=== PATIENT | female | born 1950 | race Caucasian/White ===

== ENCOUNTER 2017-04-05 15:01 | Inpatient (IN) | payer MEDICARE ==
[~2017-04-05] VITALS: Ht 170.1 cm; Wt 84.2 kg
--- NOTE | ~2017-04-05 | PR ---
[place], [place] PROGRESS NOTE NAME: MADONNA POSADAS UNIT #: [id number] ROOM: 310 DOCTOR: SHADI PEREZ MD BIRTHDATE: [birth year] DOS: 04/08/2017 CHIEF COMPLAINT: "Yes, I slept well, is it time for breakfast?" SUMMARY OF THE VISIT: The patient was interviewed in the dining area as she was sitting in her Carol chair waiting for breakfast to be delivered. In kurtz contrast to yesterday, she actually engaged in meaningful conversation. While lacking spontaneity, she was able to answer my questions more appropriately. Her responses for the most part were shorter and simple, but nonetheless they were to the point. There were no bizarre statements. There was no gibberish or word salad and from a motor standpoint, she seemed much calmer as she was sitting there. Nurses report that she slept well last night and her appetite seems to be improving. She seems to be outwardly tolerating the current medication regimen well. MENTAL STATUS: She is alert and oriented to person, perhaps place, but not time. Mood does seem a little bit more euthymic today and affect is more appropriate. As mentioned previously, her speech is more normal, although her responses are short and simple. There were no overt auditory or visual hallucinations, linnea or hypomania. Short term memory remains poor. PLAN: I will go ahead and increase Exelon patch from 4.6 to 9.5 mg a day, consider augmenting with Namenda, engage in individual and rod milieu activity, returning to the least restrictive environment when psychiatrically stable. SHADI PEREZ MD CM:PNTRANS [phone] SHADI PEREZ MD 04/08/17 0850 interface
--- NOTE | ~2017-04-05 | PR ---
[place], [place] PROGRESS NOTE NAME: MADONNA POSADAS UNIT #: [id number] ROOM: 310 DOCTOR: SHADI PEREZ MD BIRTHDATE: [birth year] DOS: 04/09/2017 CHIEF COMPLAINT: "I need water for the baby here." SUMMARY OF THE VISIT: The patient was interviewed in the dining area where she was sitting quietly. She continued to have some repetitive bizarre movements. The movements did not seem to be extrapyramidal symptoms or tardive dyskinesia, but rather purposeful on her part. She continues to be exceedingly confused and delusional and reported to me that she requires water for the baby that she was holding in her arms when in reality there was nothing at all in her arms. Nurses report episodic periods of increased lucidness, followed by periods of extreme confusion with gross psychosis. She is tolerating her current medication regimen well. MENTAL STATUS: She is alert and oriented to person. It is unclear if she realizes she is in the hospital and she is certainly not oriented to time. Mood remains labile. Affect inappropriate. She is grossly delusional. Memory continues to be exceedingly poor. PLAN: Her valproic acid level was slightly elevated at 101.9. I will lower the Depakote from 500 mg 3 times a day to 250 mg twice a day, at 500 mg at bedtime, attempting to bring the level into the range of 60-80. I will increase her Invega from 6 mg in the morning to 9 mg in the morning and add Namenda 5 mg a day to augment the effectiveness of the Exelon patch. We will continue to engage in individual and rod milieu activity with the plan to return back to [facility] or the least restrictive environment when psychiatrically stable. SHADI PEREZ MD CM:PNTRANS 8 0 SHADI PEREZ MD 04/09/17938 interface
--- NOTE | ~2017-04-05 | CON ---
[place], [place] REPORT OF CONSULTATION NAME: MADONNA POSADAS UNIT #: [id number] ROOM: 310 DOCTOR: OSWALDO RECIO ED.D (NOE) BIRTHDATE: [birth year] DOS: 04/12/2017 HISTORY OF PRESENT ILLNESS: The patient is a 66-year-old female referred by Dr. Marquez for competency evaluation. At the present time, she is here in the hospital under a court order from the light cleaner in [place], [place]. She states she is and has one son but has no contact with her son. She is presently a resident at [facility] in [place], [place]. Her medical history is pertinent for seizure disorder, schizoaffective disorder, hypochromic anemia, coronary artery disease and vitamin D deficiency. Her medications include Ventolin, Norvasc, aspirin, Lipitor, vitamin D, Seroquel, Exelon, Depakote, Namenda, lithium carbonate and Invega. I do not know this patient's history of any type of substance abuse issues. She was awake, alert and oriented to person only. She believes she was still in [facility] and believes it is August. She is clearly not competent to make informed healthcare decisions. She is quite delusional and was quite agitated and manic at [facility] prior to being sent down here under a court order. She clearly needs a guardian because she apparently does not have a healthcare power of disability attorney to make informed decisions for her. DIAGNOSIS: Schizoaffective disorder. RECOMMENDATIONS: In my opinion, this patient would benefit from having a guardianship established. Thank you very much for this consult. OSWALDO RECIO ED.D CM:CONSTR:REPORT OF CONSULTATION 1145 04/12/17 1209 interface SHADI MARQUEZ MD
--- NOTE | ~2017-04-05 | WRIGHTHP ---
[place], [place] PATIENT HISTORY AND PHYSICAL EXAM NAME: MADONNA POSADAS UNIT #: [id number] ROOM: 310 DOCTOR: SHADI PEREZ MD BIRTHDATE: [birth year] DOS: 04/07/2017 CHIEF COMPLAINT: "I am going to go ahead and do that over there." SUMMARY OF THE VISIT: This is a 66-year-old white female known to me from her admission over at [facility] as well as a psychiatric consult while on the medical floor at [facility]. The patient apparently has a lengthy history of schizoaffective disorder and had been declining while at [facility]. Her behavior has become problematic there. She has become grossly delusional, sexually inappropriate, refusing medications and refusing all aspects of care including refusing to eat. She has been actively hallucinating. Her behavior has been so problematic at [facility] that she is putting both herself and others at risk. She was sent to the Emergency Room at [facility] for medical clearance, but while there was found to be significantly hypokalemic and was subsequently admitted to the medical floor. While on the medical floor, her behavior continued to be problematic and she continued to exhibit extreme mood lability and verbal and physical aggressiveness to the staff. She is now admitted to the U for further stabilization to rule out organic factors, returning to [facility] when psychiatrically stable. PAST MEDICAL HISTORY: Remarkable for hypertension, anemia, hyperlipidemia, seizure disorder, vitamin A deficiency, vitamin D deficiency. MENTAL STATUS: The patient is alert and oriented to self only. She is very disorganized and disjointed. Her thoughts are fragmented and she responds inappropriately to most questions asked of her. She does have significant processing difficulty and short term memory is exceedingly poor. DIAGNOSES: Schizoaffective disorder and Alzheimer's dementia. PLAN: I have already started her on Invega and discontinued her Seroquel. I did start her on Depakote 250 mg twice daily and 500 mg at bedtime to augment the effectiveness of the Invega. Given the fact that she is tolerating this well and I see no sedation or somnolence, I will up the dose to 500 mg 3 times a day and plan to obtain a valproic acid level here in a day or two. I did start her also on Exelon patch 4.6 mg daily, which I will gradually titrate upwards with a target dose of 13.3 mg daily. I will also consider augmenting this with Namenda or Namenda XR to increase its effectiveness. We will engage in individual and rod milieu activity with the plan to return to [facility] when stable. [place], [place] PATIENT HISTORY AND PHYSICAL EXAM NAME: MADONNA POSADAS UNIT #: [id number] ROOM: 310 DOCTOR: SHADI PEREZ MD BIRTHDATE: [birth year] SHADI PEREZ MD CM:HISPHYS:PATIENT HISTORY AND PHYSICAL EXAMINATION 8 2 SHADI PEREZ MD 04/07/1721 interface
--- NOTE | ~2017-04-05 | DS ---
[place], [place] DISCHARGE SUMMARY NAME: MADONNA POSADAS UNIT #: [id number] ROOM: 310 DOCTOR: SHADI PEREZ MD BIRTHDATE: [birth year] DOS: 04/14/2017 CHIEF COMPLAINT: "I'm gonna go ahead and do that over there." HISTORY OF PRESENT ILLNESS: This is a 66-year-old white female known to me from her admission at [facility] as well as a psychiatric consult on the medical floor. The patient apparently has a lengthy history of schizoaffective disorder and has been declining while at [facility]. Her behavior has become problematic. She is grossly delusional, sexually inappropriate, refusing medications, refusing all aspects of care. She has been actively hallucinating. She has been both verbally and physically aggressive and combative and resistive to care. She has been putting herself and others at risk. She was sent to the Emergency Room at [place] for medical clearance, but while there was found to have significant hypokalemia and was subsequently admitted to the medical floor for stabilization. During the period of time that she was on the medical floor, she continued to be very labile with extreme verbal and physical aggressiveness and sexually inappropriate behavior. Once stabilized, she is now admitted to the U for further psychiatric stabilization. PAST MEDICAL HISTORY: Remarkable for hypertension, anemia, hyperlipidemia, seizure disorder, vitamin A deficiency, vitamin D deficiency. SUMMARY OF HOSPITAL COURSE: The patient was admitted to the unit where she had her Seroquel discontinued and she was put on Invega 6 mg a day, Depakote 250 mg twice daily and 500 mg at bedtime was utilized to augment the effectiveness of the Invega. Ultimately, the Invega was increased to 9 mg a day, Exelon patch 4.6 mg a day was started and it was increased to its maximum dose of 13.3 mg a day. Namenda was added to the mix to augment the effectiveness of the Exelon. Eventually, lithium was started because of her severe bipolar issues and severe linnea with the combination of the Depakote, the lithium and the Invega, she began to clear and her thoughts became more organized and speech became much more rational and goal directed. She was able to remember where she was living and be able to engage more appropriately in individual and group activities. She no longer was exhibiting sexually inappropriate behavior. There was no verbal or physical aggression. She tolerated the medication regimen well. She was ultimately stabilized on lithium carbonate 450 mg a day, Depakote 125 twice a day and 250 at night, Namenda 10 mg twice a day, Exelon patch 13.3 mg a day and Invega 9 mg a day. She returned to [facility] where I will follow her upon her return. MENTAL STATUS AT DISCHARGE: The patient was alert and oriented to person, place and very approximate to time. Mood was euthymic. Affect is appropriate. There was no linnea or hypomania. There were no overt auditory or visual hallucinations. No delusions, no paranoia. Short term memory had gaps, otherwise she was intact. FINAL DIAGNOSES: Schizoaffective disorder and Alzheimer's dementia. PLAN: All of her prescriptions have been printed and will be sent with her as she returns back to [facility]. I will follow her upon her return to [place], [place] DISCHARGE SUMMARY NAME: MADONNA POSADAS UNIT #: [id number] ROOM: 310 DOCTOR: SHADI PEREZ MD BIRTHDATE: [birth year] [facility]. SHADI PEREZ MD CM:DISCHARG SHADI PEREZ MD 04/14/17 0848 interface
--- NOTE | ~2017-04-05 | PR ---
[place], [place] PROGRESS NOTE NAME: MADONNA POSADAS UNIT #: [id number] ROOM: 310 DOCTOR: SHADI PEREZ MD BIRTHDATE: [birth year] DOS: 04/12/2017 CHIEF COMPLAINT: "Oh, I am feeling better, thank you for asking." SUMMARY OF THE VISIT: The patient was interviewed as she was resting quietly in bed. She smiled as I approached. She reports she is feeling much better. She is so much more goal directed in her thinking and is able to answer questions more appropriately. There is much less bizarre behavior. No sexual inappropriate behavior. She did report that she is even feeling better in regards to her breathing that seemed to be somewhat moist yesterday and this does seem to have cleared. MENTAL STATUS: She is alert and oriented to person, place, not necessarily to time, but very approximate. Mood does seem to be trending towards euthymia. Affect is more appropriate. There is no linnea, hypomania, psychosis, auditory or visual hallucinations. No suicidality, homicidality or self-injurious thoughts. Memory has some gaps, but it is also more intact than upon admission. PLAN: I will maximize out the Namenda to 10 mg b.i.d. I will recheck a valproic acid level at 6:00 a.m. on 04/13/2017 to ensure that it is therapeutic and not too low or high, engage in individual and rod milieu activity, returning to the least restrictive environment when psychiatrically stable. SHADI PEREZ MD CM:PNTRANS 1 1 SHADI PEREZ MD 04/12/17910 interface
--- NOTE | ~2017-04-05 | PR ---
[place], [place] PROGRESS NOTE NAME: MADONNA POSADAS UNIT #: [id number] ROOM: 310 DOCTOR: SHADI PEREZ MD BIRTHDATE: [birth year] DOS: 04/13/2017 CHIEF COMPLAINT: "Can I go back to my room now?" SUMMARY OF THE VISIT: The patient was interviewed in the dining area. She engaged readily in conversation, reporting that she is feeling better. She is sleeping well, eating well. Her thoughts are much more clear and organized. She is able to engage more readily in conversation. She very clearly remembers being at [facility] and states that she has only been there short time, but was not able to give me an exact date. The patient does seem to be outwardly tolerating the current medication regimen well. I see no tardive dyskinesia, extrapyramidal symptoms, sedation or somnolence. MENTAL STATUS: She is alert and oriented. Mood does seem to be strongly trending towards euthymia. Affect is much more appropriate. There is no linnea or hypomania. There are no overt auditory or visual hallucinations. No delusions, no paranoia. Short term memory has some gaps, otherwise she is intact. PLAN: I will maintain her current psychotropic regimen as it is. Her valproic acid level has come back down into therapeutic at 84. She is tolerating the lithium and the Depakote well, as well as the Invega. We will continue to engage her in individual and rod milieu activity. The ultimate plan is to return back to [facility] when psychiatrically stable. SHADI PEREZ MD CM:PNTRANS [id number] SHADI PEREZ MD 04/13/17 0847 interface
--- NOTE | ~2017-04-05 | PR ---
[place], [place] PROGRESS NOTE NAME: MADONNA POSADAS UNIT #: [id number] ROOM: 310 DOCTOR: SHADI PEREZ MD BIRTHDATE: [birth year] DOS: 04/10/2017 CHIEF COMPLAINT: "I guess I am okay." SUMMARY OF THE VISIT: The patient was interviewed as she was sitting in the dining area, watching television. As I approached, she was moving her upper extremities almost in a ritualistic way. It did not appear as a tremor. Later, I did observe her sitting in the quiet room and she had absolutely no movement whatsoever, so it does appear that this was a volitional thing. As I approached her the first time to engage her, she was more talkative and was able to answer my questions more appropriately, although many times she gave a "I don't know or I am not certain" response. She certainly seems more goal directed in her thinking. There were no bizarre comments voiced. Nurses, however, report she still exhibits some very peculiar actions and is somewhat sexual at times. MENTAL STATUS: She is alert and oriented to self. It is unclear if she knows place, certainly not time. Mood does seem to be gradually trending towards euthymia. Affect is more appropriate. There is no linnea or hypomania. It is unclear if there is still some psychosis present. PLAN: At this point, I will continue to increase the Exelon patch and the Namenda. I will bring the Exelon patch from 9.5 to its maximum dose of 13.3 daily, increase Namenda from 5 mg a day to 5 mg twice a day. I will check a valproic acid level and the lithium level in the morning tomorrow. Engage in individual and rod milieu activity with the plan to return to the least restrictive environment when stable. SHADI PEREZ MD CM:PNTRANS 4 SHADI PEREZ MD 04/10/1724 interface
--- NOTE | ~2017-04-05 | PR ---
[place], [place] PROGRESS NOTE NAME: MADONNA POSADAS UNIT #: [id number] ROOM: 310 DOCTOR: SHADI PEREZ MD BIRTHDATE: [birth year] DOS: 04/11/2017 CHIEF COMPLAINT: "Good morning." SUMMARY OF THE VISIT: The patient was interviewed after she was done showering. She did seem to have a very rattly moist cough. She is more goal directed in her speech, less bizarre behaviors noted, less sexually inappropriate behavior. She seems to be tolerating the current medication regimen well. MENTAL STATUS: She is alert and oriented. Mood does seem to be trending towards euthymia. Affect is more appropriate. There is no linnea or hypomania. There are no auditory or visual hallucinations. PLAN: I will put the valproic acid dosing on hold for 24 hours given her high valproic acid level, although this might be artificially high as she may have received a dose of Depakote prior to the blood test, making it erroneous. Her lithium level is 0.36. I will change from Lithobid 300 mg daily to Eskalith-CR 450 a day to try to bring this level up to about 0.5 or 0.6. I will increase Namenda to 10 mg in the morning and 5 mg at bedtime and order chest x-rays with two views and a CBC with diff now to rule out pneumonia or other underlying pulmonary issues, engage in individual and rod milieu activity with the plan to return to the least restrictive environment when stable. SHADI PEREZ MD CM:PNTRANS [id number] SHADI PEREZ MD 04/15/17 1318 interface
[2017-04-05] MEDS ORDERED: SEROQUEL200 MG PO (15:13)
[2017-04-05] MEDS ORDERED: NORVASC5 MG PO (15:16)
[2017-04-05] MEDS ORDERED: LIPITOR20 MG PO (15:17)
[2017-04-05] MEDS ORDERED: VENTOLIN 02.5 MG/3 M INH (15:18)
[2017-04-05] MEDS ORDERED: EXELON1 EACH T (15:18)
[2017-04-05] MEDS ORDERED: KEPPRA500 MG PO (15:19)
[2017-04-05] MEDS ORDERED: VITAMIN D50000 UNIT PO (15:20)
[2017-04-05] MEDS ORDERED: ASPIRIN CHEWABL81 MG PO (15:21)
[2017-04-05] MEDS ORDERED: MACROBID100 M1 PO (15:23)
[2017-04-06 21:00] VITALS: BP 147/74
[2017-04-06 21:32] VITALS: BP 147/74
[2017-04-07 07:39] VITALS: BP 148/76
[2017-04-07 08:11] LABS: CHLORIDE 106 mmol/L (98-107); POTASSIUM 3.2 mmol/L (3.5-5.1); SODIUM 143 mmol/L (136-145)
[2017-04-07 08:27] LABS: BUN 9 mg/dl (7-24); CHOLESTEROL 130 mg/dL (<200); CREATININE 0.89 mg/dL (0.55-1.02); HDL CHOLESTEROL 48 mg/dl (40-60); LDL CHOLESTEROL 58 mg/dL (9-159); TRIGLYCERIDES 119 mg/dl (<150); VLDL CHOLESTEROL 24 mg/dL (6-40)
[2017-04-07 08:41] LABS: VITAMIN D, 25-HYDROXY 21.9 ng/mL (30-100)
[2017-04-07 20:00] VITALS: BP 126/67
[2017-04-08 07:09] LABS: BUN 6 mg/dl (7-24); CHLORIDE 108 mmol/L (98-107); CREATININE 0.82 mg/dL (0.55-1.02); POTASSIUM 3.3 mmol/L (3.5-5.1); SODIUM 145 mmol/L (136-145)
[2017-04-08 07:25] VITALS: BP 120/62
[2017-04-08 19:45] VITALS: BP 137/56
[2017-04-09 07:37] VITALS: BP 133/65
[2017-04-09 07:55] LABS: BUN 4 mg/dl (7-24); CHLORIDE 112 mmol/L (98-107); CREATININE 0.77 mg/dL (0.55-1.02); POTASSIUM 3.6 mmol/L (3.5-5.1); SODIUM 147 mmol/L (136-145)
[2017-04-09 20:00] VITALS: BP 123/62
[2017-04-10 07:52] VITALS: BP 141/64
[2017-04-10 19:47] VITALS: BP 132/60
[2017-04-11 07:46] VITALS: BP 140/55
[2017-04-11 10:11] LABS: BASO % 0.5 % (0.0-1.0); EOS # 0.1 10*3/uL (0.0-0.4); EOS % 3.4 % (1.0-4.0); HEMATOCRIT 37.2 % (37.0-47.0); LYMPH # 0.7 10*3/uL (1.3-4.4); LYMPH % 17.1 % (27.0-41.0); MEAN CELL VOLUME 85.7 fl (81.0-99.0); MEAN CORPUSCULAR HGB 25.3 pg (27.0-31.0); MEAN CORPUSCULAR HGB CONC 29.6 g/dl (33.0-37.0); MEAN PLATELET VOLUME 11.2 fl (9.6-12.3); MONO # 0.4 10*3/uL (0.1-1.0); MONO % 8.9 % (3.0-9.0); NEUT # 2.9 10*3/uL (2.3-7.9); NEUT % 69.9 % (47.0-73.0); PLATELET COUNT AUTOMATED 177 10*3/uL (130-400); RED BLOOD COUNT 4.34 10*6/uL (4.10-5.10); WHITE BLOOD COUNT 4.1 10*3/uL (4.8-10.8)
[2017-04-11 20:00] VITALS: BP 120/56
[2017-04-12 07:37] VITALS: BP 136/70
[2017-04-12 19:49] VITALS: BP 126/56
[2017-04-13 08:00] VITALS: BP 140/63
[2017-04-13 19:37] VITALS: BP 124/78
[2017-04-14 07:52] VITALS: BP 115/69
[2017-04-14] MEDS ORDERED: DIVALPROEX SOD125 MG PO (08:28)
[2017-04-14] MEDS ORDERED: Vitamin D PO (08:28)
[2017-04-14] MEDS ORDERED: DIVALPROEX SOD250 MG PO (08:28)
[2017-04-14] MEDS ORDERED: EXELON13.3 MG/21 T (08:28)
[2017-04-14] MEDS ORDERED: MEMANTINE HCL10 MG PO (08:28)
[2017-04-14] MEDS ORDERED: LITHIUM CARBON450 M1 PO (08:28)
[2017-04-14] MEDS ORDERED: INVEGA9 MG PO (08:28)
== END 2017-04-14 12:00 | disposition other institution (70) | DRG 56 ==
LOC: 3N 15:01
PROVIDERS: Internal Medicine; Psychiatry & Neurology Psychiatry
DX: G30.9 Alzheimer's disease, unspecified (principal); I26.99 Other pulmonary embolism without acute cor pulmonale; F02.81 Dementia in other diseases classified elsewhere, unspecified severity, with behavioral disturbance; F25.8 Other schizoaffective disorders; I10 Essential (primary) hypertension; G40.909 Epilepsy, unspecified, not intractable, without status epilepticus; J45.909 Unspecified asthma, uncomplicated; E87.6 Hypokalemia; E78.2 Mixed hyperlipidemia; E55.9 Vitamin D deficiency, unspecified; D72.810 Lymphocytopenia; D50.9 Iron deficiency anemia, unspecified; I25.10 Atherosclerotic heart disease of native coronary artery without angina pectoris; F31.9 Bipolar disorder, unspecified; Z79.899 Other long term (current) drug therapy

== ENCOUNTER 2017-04-05 16:11 | Inpatient (IN) | payer MEDICARE ==
[~2017-04-05] VITALS: Ht 170.1 cm; Wt 84.2 kg
--- NOTE | ~2017-04-05 | CON ---
[place], [place] REPORT OF CONSULTATION NAME: MADONNA POSADAS UNIT #: [id number] ROOM: 509 DOCTOR: SHADI PEREZ MD BIRTHDATE: [birth year] DOS: 04/06/2017 CHIEF COMPLAINT: "I thought we were doing something with the judaism and then I came here." HISTORY OF PRESENT ILLNESS: This is a 66-year-old white female known to me from her stay at [facility]. The patient has a history of schizoaffective disorder and has been acting increasingly more bizarre and psychotic. While at the [facility], she had become sexually inappropriate, very manic, was agitated and exit seeking. Attempts to redirect her were met with her becoming increasingly verbally and physically combative. She has been refusing her medications, refusing all aspects of care, has not been eating or drinking. She was sent in to the emergency room at [facility] for medical clearance to be admitted to the U but while in the emergency room, she was found to be severely hypokalemic and was then admitted to medical floor for further stabilization. Since admission to the medical floor, the patient continues to be grossly psychotic and bizarre. PAST MEDICAL HISTORY: Remarkable for hypertension, hyperlipidemia, COPD, seizure disorder, vitamin D deficiency, and coronary artery disease. MENTAL STATUS: The patient is alert and oriented to self, possibly place, not time. Mood is extremely labile and she jumps from topic to topic. She is nearly pressured at times and at other times almost catatonic. Her responses are short and nonsensical and she rambles on frequently. DIAGNOSIS: Schizoaffective disorder. PLAN: I will start her on Invega 6 mg in the morning and Depakote 250 b.i.d. and 500 at bedtime to augment the effectiveness of the Invega, may have to utilize Invega Sustenna. At this point, she remains grossly psychotic and would certainly benefit from a further stay on the U. When she feels that she is medically stable, I will be happy to admit her to the U for further stabilization. SHADI PEREZ MD CM:CONSTR:REPORT OF CONSULTATION 1045 04/06/17 1103 interface
[~2017-04-05 16:11] MED LIST: ASPIRIN CHEWABL81 MG PO; EXELON1 EACH T; KEPPRA500 MG PO; LIPITOR20 MG PO; MACROBID100 M1 PO; NORVASC5 MG PO; SEROQUEL200 MG PO; VENTOLIN 02.5 MG/3 M INH; VITAMIN D50000 UNIT PO
[2017-04-05 16:28] VITALS: BP 155/78
[2017-04-05 17:05] LABS: BASO % 0.3 % (0.0-1.0); EOS % 0.6 % (1.0-4.0); HEMATOCRIT 35.7 % (37.0-47.0); HEMOGLOBIN 10.8 g/dl (12.0-16.0); LYMPH # 1.4 10*3/uL (1.3-4.4); LYMPH % 38.6 % (27.0-41.0); MEAN CELL VOLUME 82.6 fl (81.0-99.0); MEAN CORPUSCULAR HGB CONC 30.3 g/dl (33.0-37.0); MEAN PLATELET VOLUME 11.3 fl (9.6-12.3); MONO # 0.5 10*3/uL (0.1-1.0); MONO % 13.8 % (3.0-9.0); NEUT # 1.7 10*3/uL (2.3-7.9); NEUT % 46.4 % (47.0-73.0); PLATELET COUNT AUTOMATED 180 10*3/uL (130-400); RED BLOOD COUNT 4.32 10*6/uL (4.10-5.10); RED CELL DISTRI WIDTH 15.9 % (0-14.5); WHITE BLOOD COUNT 3.6 10*3/uL (4.8-10.8)
[2017-04-05 17:22] LABS: ALBUMIN 3.6 gm/dl (3.1-4.5); ALKALINE PHOSPHATASE 105 U/L (45-117); BUN 8 mg/dl (7-24); CHLORIDE 105 mmol/L (98-107); CREATININE 0.93 mg/dL (0.55-1.02); POTASSIUM 2.9 mmol/L (3.5-5.1); SGOT/AST 30 IU/L (3-35); SGPT/ALT 22 U/L (12-78); SODIUM 142 mmol/L (136-145); TOTAL PROTEIN 7.2 gm/dL (6.4-8.2)
[2017-04-05 17:25] LABS: ETHYL ALCOHOL < 3.0 mg/dl (<3)
[2017-04-05 17:58] LABS: URINE AMPHETAMINES < 1000 (1000ng/ml); URINE BARBITURATES < 200 (200ng/ml); URINE BENZODIAZEPINES < 200 (200ng/ml); URINE CANNABINOIDS (THC) < 50 (50ng/ml); URINE COCAINE < 300 (300ng/ml); URINE METHADONE < 300 (300ng/ml); URINE OPIATES < 300 (300ng/ml)
[2017-04-05 17:59] LABS: URINE PHENCYCLIDINE < 25 (25ng/ml)
[2017-04-05 18:03] LABS: BILIRUBIN NEGATIVE (NEGATIVE); BLOOD NEGATIVE (NEGATIVE); CLARITY CLEAR (CLEAR); COLOR YELLOW (YELLOW); GLUCOSE NEGATIVE (NEGATIVE); KETONE 1+ (NEGATIVE); LEUKO ESTERASE NEGATIVE (NEGATIVE); NITRITE NEGATIVE (NEGATIVE); PH 5.5 (5.0-9.0)
[2017-04-05 18:17] LABS: BACTERIA 3+
[2017-04-05 20:00] VITALS: BP 146/62
[2017-04-05 20:08] VITALS: BP 146/72
[2017-04-05 20:58] VITALS: BP 146/62
[2017-04-05 22:30] LABS: BUN 9 mg/dl (7-24); CHLORIDE 111 mmol/L (98-107); CREATININE 0.82 mg/dL (0.55-1.02); SODIUM 146 mmol/L (136-145)
[2017-04-06 00:10] VITALS: BP 154/75
[2017-04-06 06:20] LABS: HEMATOCRIT 33.2 % (37.0-47.0); HEMOGLOBIN 9.9 g/dl (12.0-16.0); MEAN CELL VOLUME 83.6 fl (81.0-99.0); MEAN CORPUSCULAR HGB 24.9 pg (27.0-31.0); MEAN CORPUSCULAR HGB CONC 29.8 g/dl (33.0-37.0); MEAN PLATELET VOLUME 11.8 fl (9.6-12.3); PLATELET COUNT AUTOMATED 171 10*3/uL (130-400); RED BLOOD COUNT 3.97 10*6/uL (4.10-5.10); RED CELL DISTRI WIDTH 16.2 % (0-14.5); WHITE BLOOD COUNT 3.3 10*3/uL (4.8-10.8)
[2017-04-06 06:38] LABS: BUN 8 mg/dl (7-24); CHLORIDE 108 mmol/L (98-107); CHOLESTEROL 109 mg/dL (<200); CREATININE 0.72 mg/dL (0.55-1.02); POTASSIUM 3.2 mmol/L (3.5-5.1); SODIUM 144 mmol/L (136-145); TRIGLYCERIDES 110 mg/dl (<150); VLDL CHOLESTEROL 22 mg/dL (6-40)
[2017-04-06 06:54] LABS: ACT PARTIAL THROMBO TIME 22.2 SECONDS (20.8-31.5); HDL CHOLESTEROL 40 mg/dl (40-60); LDL CHOLESTEROL 47 mg/dL (9-159); PHOSPHOROUS 3.9 mg/dL (2.5-4.9); THYROID STIM HORMONE (HS) 0.648 uIU/ml (0.358-4.75)
[2017-04-06 07:07] LABS: OVALOCYTES FEW; PLATELET SUFFICIENCY NORMAL (NORMAL); POLYCHROMASIA SLIGHT; TOTAL CELLS COUNTED 100 #CELLS
[2017-04-06 08:00] VITALS: BP 133/68
[2017-04-06 08:01] LABS: VITAMIN D, 25-HYDROXY 21.4 ng/mL (30-100)
[2017-04-06 12:00] VITALS: BP 150/87
[2017-04-06 16:00] VITALS: BP 138/58
== END 2017-04-06 20:20 | disposition home health service (06) | DRG 641 ==
LOC: ED 16:11 → 4E 18:24 → 5E 18:24
PROVIDERS: Emergency Medicine; Internal Medicine
DX: E87.6 Hypokalemia (principal); F25.0 Schizoaffective disorder, bipolar type; F03.90 Unspecified dementia, unspecified severity, without behavioral disturbance, psychotic disturbance, mood disturbance, and anxiety; J44.9 Chronic obstructive pulmonary disease, unspecified; I10 Essential (primary) hypertension; J45.909 Unspecified asthma, uncomplicated; E78.2 Mixed hyperlipidemia; D72.810 Lymphocytopenia; D64.9 Anemia, unspecified; G40.909 Epilepsy, unspecified, not intractable, without status epilepticus; M10.9 Gout, unspecified; Z79.82 Long term (current) use of aspirin; E50.9 Vitamin A deficiency, unspecified; D50.9 Iron deficiency anemia, unspecified